=== PATIENT | female | born 1960 | race Caucasian/White ===

== ENCOUNTER 2018-01-03 12:23 | Emergency (ER) | payer SELFPAY ==
[~2018-01-03] VITALS: Ht 160 cm; Wt 59.0 kg
[2018-01-03 12:55] LABS: ABSOLUTE BASOPHIL COUNT 0 /CUMM (0.0-0.2); ABSOLUTE EOSINOPHIL COUNT 0 /CUMM (0.0-0.7); ABSOLUTE GRANULOCYTE CT 5.3 /CUMM (1.4-6.5); ABSOLUTE LYMPH COUNT 0.5 /CUMM (1.2-3.4); ABSOLUTE MONOCYTE COUNT 0.8 /CUMM (0.10-0.60); BASOPHIL % 0.3 % (0.0-2.0); EOSINOPHIL % 0.5 % (0-5); GRANULOCYTE % 79.4 % (42.2-75.2); MEAN CORPUSCULAR HGB 33.8 PG (27.0-31.0); MEAN CORPUSCULAR HGB CONC 34.7 G/DL (33.0-37.0); MEAN CORPUSCULAR VOLUME 97.5 FL (81.0-99.0); MEAN PLATELET VOLUME 7.9 FL (7.4-10.4); PLATELET COUNT 179 /CUMM (130-400); RBC DISTRIBUTION WIDTH 12.8 % (11.5-14.5); WHITE BLOOD CELL COUNT 6.7 /CUMM (4.8-10.8)
--- NOTE | 2018-01-03 13:09 | CT SCAN REPORT ---
EXAMINATION: CT HEAD AND CERVICAL SPINE CLINICAL INFORMATION: History of trauma. Evaluate for intracranial hemorrhage. COMPARISON: No relevant prior imaging. TECHNIQUE: [place] images were obtained. CT acquisition of the head and cervical spine was performed without intravenous administration of contrast. Data was reformatted into multiplanar images at the acquisition workstation. DLP: 850.39 mGy-cm. FINDINGS: Head: There is no acute intracranial hemorrhage or abnormal extra-axial collection. No intracranial mass effect or midline shift. There is ill-defined focus within the subcortical white matter of the right frontal operculum. Osei-white matter differentiation is grossly preserved and there is no evidence of acute territorial infarct. There is a small coarse calcification involving the right tentorial leaflet. Lateral and third ventricles are proportionate to the subarachnoid spaces. No hydrocephalus. The calvarium and skull base are intact. No mastoid or middle ear effusion. Visualized paranasal sinuses are well-aerated. Cervical spine: Alignment is normal. Vertebral body heights are preserved. There is no acute fracture. No abnormal prevertebral soft tissue swelling. There is loss of intervertebral disc height with associated sclerotic degenerative endplate changes and disc osteophyte spurring at multiple levels. There are small intraosseous pneumatocysts at multiple levels. Grossly no evidence of canal compromise. Uncovertebral joint spurring causes mild neuroforaminal encroachment multiple levels. Soft tissues of the neck are grossly unremarkable. Visualized lung apices are clear. IMPRESSION: Head: No acute intracranial hemorrhage. There is a small nonspecific focus of low attenuation within the subcortical white matter of the right frontal operculum that may represent chronic changes of an old infarct or perhaps a tumefactive perivascular space. Grossly no subacute territorial infarct. Cervical spine: There is advanced multilevel degenerative spondylosis of the cervical spine. No acute fracture and no traumatic spinal subluxation.
--- NOTE | 2018-01-03 16:24 | ULTRASOUND REPORT ---
EXAMINATION: US ABDOMEN LIMITED CLINICAL INFORMATION: LFT abnormalities. Cholecystitis versus hepatitis versus cirrhosis. COMPARISON: Abdominal ultrasound 08/21/2016. TECHNIQUE: Real-time imaging of the right upper quadrant abdominal viscera. FINDINGS: PANCREAS: Normal. LIVER: Diffusely increased and coarsened echotexture consistent with chronic hepatocellular disease. No discrete cirrhotic morphology. Focal hypoechoic lesion in the caudate measures 1.2 x 1.0 x 1.3 cm not significantly changed from the previous exam. GALLBLADDER: Normal. The gallbladder is physiologically distended without evidence of stones, sludge, polyps, wall thickening or pericholecystic fluid. COMMON BILE DUCT: Normal in caliber measuring 0.3 cm in diameter. RIGHT KIDNEY: Normal. No hydronephrosis. No renal calculi or focal parenchymal lesions. The kidney measures 9.4 cm in maximum dimension. FREE FLUID: None. IMPRESSION: Abnormal liver echotexture consistent with chronic hepatocellular disease. No definite cirrhotic morphology. Hypoechoic lesion in the caudate measures 1.2 x 1.0 x 1.3 cm without significant change from the prior ultrasound 08/21/2016. No evidence of iliac artery obstruction or cholecystitis.
--- NOTE | 2018-01-03 18:24 | ED SYNCOPE COMPLAINT ---
History of Present Illness General Chief Complaint: Syncope and Near-Syncope Stated Complaint: SYNCOPAL EPISODE, +HEADSTRIKE Source: patient, family, old records Exam Limitations: no limitations Vital Signs & Intake/Output Vital Signs & Intake/Output Vital Signs Date Time Temp Pulse Resp B/P B/P Pulse O2 O2 Flow FiO2 Mean Ox Delivery Rate 01/04 2036 97.5 76 18 164/95 100 01/03 1800 94 17 151/94 98 Room Air 01/03 1231 98.0 101 18 141/100 98 Room Air Allergies Coded Allergies: No Known Allergies (01/03/18) Triage Note: 57F REPORTS SHES BEEN HAVING DIZZY SPELLS, AND WOKE UP ON FLOOR AND THERE WAS A BLOOD STAIN SO SHE ASSUMES SHE PASSED OUT AND HIT HER HEAD. DENIES EXPERIENCING CP/SOB/PALP PRIOR TO EVENT. REPORTS SHE ALSO HAD SEVERE GASTRIC AREA PAIN AND VOMITED 10X. PT BELIEVES SYNCOPAL EPISODE HAPPENED APPROX 1-2 HOURS AFTER. SLIGHTLY HYPERTENSIVE IN TRIAGE BUT ASYMPTOMATIC. DENIES CHANGE IN VISION OR HEADACHE AT PRESENT. DENIES DIZZINESS CURRENTLY. RECENT MED CHANGE OF DOXEPIN AND WELLBUTRIN Triage Nurses Notes Reviewed? yes Timing: recent history Precipitating Factors: injury, lightheadedness Context: became dizzy/fainted Episode Description: as above Loss of Consciousness: unsure Associated Symptoms: abdominal pain, dizziness, headache, nausea/vomiting LMP (ages 10-50): post menopausal : No Patient currently breastfeeds: No HPI: Couple days prior to admission patient complains of having dizzy spells with increasing frequency. Several hours prior to admission she complained of epigastric pain followed by nausea vomiting. Standing in front of the TV she felt dizzy and collapsed to the floor striking the back of her head unconscious for an unknown period of time. She went to bed and awoke with blood on the beddings. She denies fever chills diarrhea abdominal pain chest pain cough shortness of breath dysuria rash. (Zachary Muñiz MD) Past History Travel History Traveled to [place] past 21 day No Medical History Any Pertinent Medical History? see below for history Psychiatric: depression Surgical History Surgical History: non-contributory Psychosocial History What is your primary language Persian Tobacco Use: Never used ETOH Use: denies use Illicit Drug Use: denies illicit drug use Family History Hx Contributory? No (Zachary Muñiz MD) Review of Systems Review of Systems Constitutional: Reports: no symptoms. EENTM: Reports: no symptoms. Respiratory: Reports: no symptoms. Cardiovascular: Reports: no symptoms. GI: Reports: see HPI, abdominal pain. Denies: nausea, vomiting. Genitourinary: Reports: no symptoms. Musculoskeletal: Reports: no symptoms. Skin: Reports: see HPI. Neurological/Psychological: Reports: see HPI, headache. All Other Systems: Reviewed and Negative (Zachary Muñiz MD) Physical Exam Physical Exam General Appearance: well developed/nourished, alert, awake, anxious, mild distress Head: evidence of injury, contusions, tenderness Eyes: Bilateral: normal appearance, PERRL, EOMI. Ears, Nose, Throat: normal pharynx, normal ENT inspection, hearing grossly normal Neck: normal inspection, supple, full range of motion, no midline tenderness Respiratory: normal breath sounds, chest non-tender, no respiratory distress, quiet respiration, lungs clear Cardiovascular: regular rate/rhythm, normal peripheral pulses, norml femoral pulses equa Gastrointestinal: normal bowel sounds, soft, non-tender, no organomegaly Back: normal inspection, normal range of motion, no vertebral tenderness Extremities: normal inspection, normal capillary refill, normal range of motion, no edema Psychiatric: awake, alert, oriented x 3 Cranial Nerves: normal hearing, normal speech, PERRL Coordination/Gait: normal finger to nose, normal gait Motor/Sensory: no motor/sensory deficits Reflexes: 2+: bicep (R), bicep (L). Skin: normal color Lymphatic: no anterior cervical ivan Core Measures ACS in differential dx? No CVA/TIA Diagnosis: No Sepsis Present: No Sepsis Focused Exam Completed? No (Zachary Muñiz MD) Physical Exam Head: 6CM DEEP LACERATION ON OCCIPUT (Kendra GREENWOOD,Asim Curtis) Progress Differential Diagnosis: drug induced syncope, orthostatic syncope, seizure, vasodepressor syncope Plan of Care: Orders Procedure Date/time Status TROPONIN LEVEL 01/03 1805 Complete TROPONIN LEVEL 01/03 1235 Complete PROLACTIN 01/03 1235 Complete MAGNESIUM 01/03 1235 Complete COMPREHENSIVE METABOLIC PANEL 01/03 1235 Complete CBC WITHOUT DIFFERENTIAL 01/03 1235 Complete EKG 01/03 1225 Active Current Medications Sig/Sherine Start time Last Medication Dose Stop Time Status Admin Tetanus/Diphtheria 0.5 ML ONCE ONE 08/13 1945 CAN Toxoids Adsorbed 01/03 1946 ([facility]) Laboratory Tests 01/03/18 1817: Troponin I < 0.01 01/03/18 1246: Anion Gap 12, Estimated GFR > 60, BUN/Creatinine Ratio 18.6, Glucose 133 H, Calcium 9.5, Magnesium 1.5 L, Total Bilirubin 1.7 H, AST 430 H, ALT 104 H, Alkaline Phosphatase 63, Troponin I < 0.01, Total Protein 7.2, Albumin 4.5, Globulin 2.7, Albumin/Globulin Ratio 1.7, Prolactin 9.8, CBC w Diff NO MAN DIFF REQ, RBC 3.80 L, MCV 97.5, MCH 33.8 H, MCHC 34.7, RDW 12.8, MPV 7.9, Gran % 79.4 H, Lymphocytes % 7.8 L, Monocytes % 12.0 H, Eosinophils % 0.5, Basophils % 0.3, Absolute Granulocytes 5.3, Absolute Lymphocytes 0.5 L, Absolute Monocytes 0.8 H, Absolute Eosinophils 0, Absolute Basophils 0 Diagnostic Imaging: Viewed by Me: CT Scan, Ultrasound. Discussed w/RAD: CT Scan, Ultrasound. Radiology Impression: 1. No acute cardiopulmonary process seen. 2. Old calcified granuloma in the left upper lobe. 3. Old healed fracture deformities of the ribs and old fracture of T11 vertebral body. Initial ED EKG: normal axis, normal intervals, normal p-waves, normal QRS complex, normal sinus rhythm, no ST T wave changes Hand-Off Endorsed To: Asim Gardner MD Endorsed Time: 1899 Pending: other (scalp lac repair?) (Zachary Muñiz MD) Departure Departure Disposition: STILL A PATIENT Condition: Stable Clinical Impression Primary Impression: Syncope and collapse Secondary Impressions: Hypokalemia, Hypomagnesemia, Hyponatremia, Nausea and vomiting Referrals: Patient Has No Primary Care Dr (PCP/Family) Departure Forms: Customer Survey General Discharge Information (Zachary Muñiz MD) Departure Comments 01/03/18, 19:34pm... pt feeling better after iv fluids and supportive care.... laceration repaired with cash without problem.... pt will d/c psychiatric meds, follow up with PMD... discussed all results, including lft's, lab abnormalities, imaging.... discussed with her to follow up for a wound check in 1-2 days and to have sutures removed in 7 days. (Kendra GREENWOOD,Asim Curtis) Procedures Laceration/Wound Repair Laceration/Wound Repair: Wound Location: head, OCCIPUT Wound's Depth, Shape: linear, into muscle Wound Length (cm): 6 Irrigated w/ Saline (ccs): 500 Suture Size/Type: cash Number of Sutures: 6 (Asim Gardner MD) Wound Length (cm): 6 Irrigated w/ Saline (ccs): 500 Suture Size/Type: cash Number of Sutures: 6 (Asim Gardner MD)
[2018-01-03 20:36] VITALS: BP 164/95
== END 2018-01-03 20:49 ==
LOC: ERH 12:23
PROVIDERS: Emergency Medicine
DX: S01.01XA Laceration without foreign body of scalp, initial encounter (principal); R55 Syncope and collapse; E87.6 Hypokalemia; E87.1 Hypo-osmolality and hyponatremia; E83.42 Hypomagnesemia; R11.2 Nausea with vomiting, unspecified; W19.XXXA Unspecified fall, initial encounter
CPT/HCPCS: 93005; 93010; 96374; 96375